=== PATIENT | male | born 1990 | race Caucasian/White ===

== ENCOUNTER 2017-07-20 14:49 | Inpatient (IN) | payer MEDICAID ==
[~2017-07-20] VITALS: Ht 175.3 cm; Wt 74.6 kg
[2017-07-20] MEDS ORDERED: ACETAMINOPHEN 325 MG TABLET PO PRN (16:15)
[2017-07-20] MEDS ORDERED: MAGNESIUM HYDROXIDE SUSPENSION 30 ML UDCUP PO PRN (16:15)
[2017-07-20] MEDS ORDERED: OLANZapine 5 MG RAPDIS TABLET PO PRN (16:15)
[2017-07-20] MEDS ORDERED: GuaiFENesin/D-METHORPHAN [SUGAR-FREE] 200-20MG/10 ML SYRUP UDCUP PO PRN (16:15)
[2017-07-20] MEDS ORDERED: MAG HYDROX/AL HYDROX/SIMETH ES 30 ML SUSPENSION UDCUP PO PRN (16:15)
[2017-07-20] MEDS ORDERED: TUBERCULIN, PURIFIED PROTEIN DERIVATIVE 5 TU/0.1 ML SYG ID ONE (16:15)
[2017-07-20] MEDS ORDERED: ZOLPIDEM TARTRATE 10 MG TABLET PO PRN (16:15)
[2017-07-20] MEDS ORDERED: PROMETHAZINE HCL 25 MG TABLET PO PRN (16:15)
[2017-07-20] MEDS ORDERED: HydrOXYzine PAMOATE 50 MG CAPSULE PO PRN (16:15)
[2017-07-20] MEDS ORDERED: LORazepam 2 MG TABLET PO PRN (16:15)
[2017-07-20] MEDS ORDERED: LOPERAMIDE HCL 2 MG CAPSULE PO PRN (16:15)
[2017-07-20 19:04] VITALS: BP 119/76
[2017-07-20] MEDS: OLANZapine 5 MG RAPDIS TABLET PO SCH (20:48)
[2017-07-20] MEDS: THIAMINE HCL 100 MG TABLET PO SCH (20:48)
[2017-07-20] MEDS ORDERED: DIVALPROEX SODIUM 500 MG ER TABLET PO SCH (21:00)
[2017-07-21 06:53] VITALS: BP 122/74
[2017-07-21 08:00] VITALS: BP 125/78
[2017-07-21] MEDS: THIAMINE HCL 100 MG TABLET PO SCH ×2 (08:49→17:04)
[2017-07-21] MEDS: NALTREXONE HCL 50 MG TABLET PO SCH (08:49)
[2017-07-21] MEDS: MULTIVITAMINS WITH MINERALS, THERAPEUTIC TABLET PO SCH (08:49)
[2017-07-21] MEDS: FOLIC ACID 1 MG TABLET PO SCH (08:49)
[2017-07-21] MEDS: BACITRACIN 28.4 GM OINTMENT TP SCH ×2 (08:49→17:05)
[2017-07-21 09:08] LABS: BASOPHILS % (AUTO) 0.3 % (0.0-2.0); EOSINOPHILS % (AUTO) 0.5 % (1.0-6.0); HEMATOCRIT 43.6 % (41-53); HEMOGLOBIN 14.8 g/dL (13.5-17.5); LYMPHOCYTES # (AUTO) 2.2 K/uL (1.0-4.8); LYMPHOCYTES % (AUTO) 27.2 % (22.0-44.0); MEAN CORPUSCULAR HEMOGLOBIN 31.4 pg (26.0-34.0); MEAN CORPUSCULAR VOLUME 92 fL (80-100); MONOCYTES # (AUTO) 0.5 K/uL (0.1-1.0); MONOCYTES % (AUTO) 6.7 % (2.0-9.0); NEUTROPHILS # (AUTO) 5.3 K/uL (1.8-7.7); NEUTROPHILS % (AUTO) 65.3 % (40.0-70.0); PLATELET COUNT (AUTO) 280 K/uL (150-450); RED BLOOD CELL COUNT(AUTO) 4.72 MIL/uL (4.50-5.90); RED CELL DISTRIBUTION WIDTH 12.3 % (11.5-14.5); WHITE BLOOD COUNT (AUTO) 8.1 K/uL (4.5-11.0)
[2017-07-21 09:43] LABS: APPEARANCE,URINE CLEAR (CLEAR); GLUCOSE, URINE (UA) NEGATIVE (NEGATIVE); KETONES,URINE TRACE mg/dL (NEGATIVE); LEUKOCYTE ESTERASE ,URINE NEGATIVE (NEGATIVE); OCCULT BLOOD,URINE NEGATIVE (NEGATIVE); PH,URINE 7.5 (5.0-8.0); PROTEIN,URINE NEGATIVE (NEGATIVE)
[2017-07-21 10:02] LABS: ALANINE AMINOTRANSFERASE 36 U/L (12-78); ANION GAP 7 mmol/L (8-16); ASPARTATE AMINOTRANSFERASE 43 U/L (15-37); BILIRUBIN,TOTAL 0.4 mg/dL (0.1-1.0); CALCIUM, TOTAL 9.1 mg/dL (8.8-10.5); CARBON DIOXIDE 27 mmol/L (22-29); CHLORIDE 106 mmol/L (98-107); CREATININE 0.89 mg/dL (0.60-1.30); GLOMERULAR FILTR. RATE CALC > 60 mL/min (>60); POTASSIUM 4.3 mmol/L (3.5-5.1); SODIUM SERUM 140 mmol/L (136-145); THYROID STIMULATING HORMONE 1.02 uIU/mL (0.36-3.74); TOTAL PROTEIN, SERUM 7.7 g/dL (6.4-8.2); UREA NITROGEN, BLOOD 16 mg/dL (7-18)
[2017-07-21 10:25] LABS: ADD UA MICROSCOPIC NO
[2017-07-21 10:40] LABS: HEMOGLOBIN A1C 5.4 % (4.5-6.2)
[2017-07-21] MEDS ORDERED: NALT50TA PO (15:48)
[2017-07-21] MEDS ORDERED: OLAN5TAB30 PO (15:48)
[2017-07-21 16:00] VITALS: BP 124/83
[2017-07-21] MEDS: OLANZapine 5 MG RAPDIS TABLET PO SCH (20:47)
[2017-07-22 06:30] VITALS: BP 125/98
[2017-07-22 08:24] VITALS: BP 120/88
[2017-07-22] MEDS ORDERED: BACI30OI6 TP (08:36)
[2017-07-22] MEDS: FOLIC ACID 1 MG TABLET PO SCH (09:02)
[2017-07-22] MEDS: NALTREXONE HCL 50 MG TABLET PO SCH (09:03)
[2017-07-22] MEDS: BACITRACIN 28.4 GM OINTMENT TP SCH (09:03)
[2017-07-22] MEDS: THIAMINE HCL 100 MG TABLET PO SCH (09:03)
[2017-07-22] MEDS: MULTIVITAMINS WITH MINERALS, THERAPEUTIC TABLET PO SCH (09:03)
== END 2017-07-22 10:30 | disposition home or self-care (01) | DRG 750 ==
LOC: B3A 18:52
PROVIDERS: ADMIT Psychiatry & Neurology Psychiatry; ATTEND Psychiatry & Neurology Psychiatry
DX: F20.0 Paranoid schizophrenia (principal); Z91.19 Patient's noncompliance with other medical treatment and regimen; F17.200 Nicotine dependence, unspecified, uncomplicated; Z65.3 Problems related to other legal circumstances; Z81.8 Family history of other mental and behavioral disorders
CPT/HCPCS: 80307; 83036; 84439; 84443; 86592; 87081